=== PATIENT | female | born 1960 | race Caucasian/White ===

== ENCOUNTER 2019-03-24 13:50 | Emergency (ER) | payer OTHER ==
[~2019-03-24] VITALS: Ht 165.1 cm; Wt 62.6 kg
[2019-03-24] MEDS ORDERED: VALACYCLOVIR1000 MG PO (14:44)
[2019-03-24] MEDS ORDERED: PREDNISONE50 MG PO (14:44)
[2019-03-24 15:05] VITALS: BP 167/92
== END 2019-03-24 15:10 | disposition home or self-care (01) ==
LOC: ER 13:50
DX: G51.0 Bell's palsy (principal); Z90.49 Acquired absence of other specified parts of digestive tract; Z88.0 Allergy status to penicillin